=== PATIENT | male | born 1990 | race Caucasian/White ===

== ENCOUNTER 2023-05-18 16:56 | Emergency (ER) | payer BC, SELFPAY ==
[2023-05-18 17:03] VITALS: BP 142/80
--- NOTE | 2023-05-18 17:28 | ED.GENMED ---
History of Present Illness
General
Chief Complaint: Head Injury
Source: patient
Exam Limitations: none
Time Seen by Provider: 05/18/23 17:12
Nursing documentation reviewed up to this point in time: agreed with
Travel History
Have you had any contact with someone who has COVID-19?: No
Do you have any symptoms of coronavirus? Fever > 100 degrees, chills, cough, shortness of breath, sore throat, loss of taste or smell, muscle aches, or headache?: No
History of Present Illness
History of Present Illness:
32-year-old male with a history of migraines presents for headache after head injury last night. Patient says he was jumping onto to go downhill on his chin ground causing hyperextension of his neck and a headache. Patient says he had no
significant loss of consciousness but it happened very fast. Subsequent to that he had some pain in his jaw which is better today but has had a persistent headache, felt lightheaded, and 'off.'Says he feels some brain fog. He slept from 10 PM till
about 4 PM today.
He is not having any trouble opening or closing his jaw, he denies any vomiting, balance problems, paresthesias or weakness in his arms or legs. Patient last took Tylenol earlier this morning and Motrin last night. He has photophobia
no thinners.
Past History
Past History
ED Past Medical History: Other (migraines)
Social History
Tobacco: Non-smoker
Alcohol: Occasional
Drug: None
Personal:
Living: with family
Employment: Employed
Review of Systems
Review of Systems
Allergies reviewed?: Yes
All Other Systems: Not applicable
Phy Exam
Physical Exam
Physical Exam:
GENERAL: Alert , in no apparent distress
HEAD: NCAT
EYE: pupils equal and reactive, no nystagmus, minimal photophobia
NECK: Supple,full rom,
mild posterior tendenress top of the cervical spine
full ROM intact
ENT: o/p clr, mmm.
jaw nontneder
tongue blade test neg b/l
no trismus
CARDIAC: Regular rate and rhythm . no edema
LUNGS: Clear breath sounds bilaterally, no acute respiratory distress, no wheezes/rales/rhonchi
ABDOMEN: Soft, without focal tenderness, no r/g, no cvat
NEUROLOGICAL: Alert and orientedx 4, cn intact, no facial asymmetry, 5/5 strength in UE/LE, sensation intact, romberg neg, ambulates without assistance, neg pronator drift
SKIN: Warm and dry, skin intact.
MUSCULOSKELETAL: No edema, well perfused.
PSYCH: Normal and appropriate interaction.
Course
Orders/Labs/Results
Orders:
Orders
05/18/23 17:04
CT Head W/o Iv Contrast Urgent
Comment:
Reason For Exam: sledding accident, vision feeling 'off'
05/18/23 17:25
CT Cervical Spine W/o Iv Contr Urgent
Comment:
Reason For Exam: neck pain after fall
Acetaminophen [Tylenol] 650 mg PO NOW STA
Ibuprofen [Motrin] 600 mg PO NOW STA
Vital Signs
Initial and Last Documented VS:
Initial Vital Signs
Temp Pulse Resp BP Pulse Ox
98.8 F 58 17 142/80 99
05/18/23 17:03 05/18/23 17:03 05/18/23 17:03 05/18/23 17:03 05/18/23 17:03
Last Documented Vital Signs
Temp Pulse Resp BP Pulse Ox
98.8 F 58 17 142/80 99
05/18/23 17:03 05/18/23 17:03 05/18/23 17:03 05/18/23 17:03 05/18/23 17:03
MDM/Problems Addressed
Differential Diagnosis Includes:
concussion, cerivcal strian, minor head injury
MDM/Problems Addressed:
32 y/o M with no sig pmh
here with headache, sore neck after sledding injury, landed with chin on ground, felt pain in head and neck last night
feels off
nausea, no vomiting
photophobia
sore neck
neuro intact
photophobia mildly
no weakness/numbness
pending ct/c spine and likely d/c concussive protocol brain rest.
*Critical Care Note
Total Time (30-74mins, 75-104mins- exclusive of procedures): Not Applicable
ED Attending Note
-
Portions of this chart may have been created with voice recognition software.� Occasional wrong word or��sound alike� substitutions may have occurred due to the inherent limitations of voice recognition software.
Discharge Plan
Departure
Patient Disposition: Home (Routine Discharge)
Date of Disposition: 05/18/23
Time of Disposition: 19:21
Patient with high blood pressure during this ER visit?: Yes
Condition: Fair
Covid-19: Not Applicable
Discharge Problem:
Concussion
Instructions: Concussion, Adult (DC)
Stand Alone Forms: Return to Work
Activity Restrictions/Additional Instructions:
you may have a mild concussion
for this we recommend 48 hours of brain rest to help your brain heal and your headache improve.
also use tylenol every 6 hours, motrin every 8 hours as needed for pain.
for your neck, heat off and on as needed.
after 48 hours, you can return to WORK
if you are getting headaches, you may need to be sent home. if you are still having headaches all week, you need to see a specialist before returning to gym or sports.
return to the er for: worsening pain, vomiting, confusion, weakness, numbness/tingling in arms or legs or any concerns.
Interventions
Interventions:
*Risk Screen - Suicide Last Done: 05/18/23 18:05
*General Assessment Last Done: 05/18/23 18:05
*Neglect/Abuse Screening Last Done: 05/18/23 18:05
ED- Fall Risk Assessment Last Done: 05/18/23 18:05
*ED COVID-19 Vaccine History Last Done: 05/18/23 18:05
*Nursing Disposition Last Done: 05/18/23 19:39
ED- Neurological Assessment Last Done: 05/18/23 18:05
ED-Skin Assessment Last Done: 05/18/23 18:05
Discharge Date and Time
Discharge Date/Time: 05/18/23 19:39
[2023-05-18] MEDS: TYLENOL 650 MG PO (17:44)
[2023-05-18] MEDS: MOTRIN 600 MG PO (17:44)
== END 2023-05-18 19:39 | disposition home or self-care (01) ==
LOC: EMR 16:56
PROVIDERS: EMERGENCY PHYSICIAN Emergency Medicine
DX: S06.0X0A Concussion without loss of consciousness, initial encounter (principal); W19.XXXA Unspecified fall, initial encounter; Y93.23 Activity, snow (alpine) (downhill) skiing, snowboarding, sledding, tobogganing and snow tubing
CPT/HCPCS: 99284; 70450; 72125